=== PATIENT | female | born 1945 | race African-American/Black ===

== ENCOUNTER → 2016-06-04 | Outpatient (CLI) | payer MEDICARE ==
[~2016-06-04] MED LIST: ALBU1AER INH; ASPI81TA82 PO; CENTTAB9 PO; CETI10CH PO; CHOL4POW3 PO; DILTCD300 PO; ESTER C PO; ESTR1TAB PO; LISI-360 PO; LOVA1TAB47 PO; METF-324 PO; MONT10TA2 PO; NOVO7030P2 SQ; PROBCAP4 PO
[2016-06-04 10:20] LABS: MEAN CELL VOLUME 90.3 FL (80.0-100.0); MEAN CORPUSCULAR HEMOGLOBIN 29.7 PG (27.0-34.0); MEAN CORPUSCULAR HGB CONC 32.9 % (32.0-36.0); PLATELET COUNT 190 TH/MM3 (150-450); RED BLOOD COUNT 3.99 MIL/MM3 (4.00-5.30); RED CELL DISTRIBUTION WIDTH 12.9 % (11.6-17.2); REVIEW FLAG FINAL
[2016-06-04 10:24] LABS: ALT (GPT) 42 U/L (10-53); ANION GAP 9 MEQ/L (5-15); AST (GOT) 27 U/L (15-37); BICARBONATE 26.6 MEQ/L (21.0-32.0); BLOOD UREA NITROGEN 19 MG/DL (7-18); CHLORIDE 104 MEQ/L (98-107); GLOMERULAR FILTRATION RATE 56 ML/MIN (>89); GLUCOSE,FASTING 140 MG/DL (74-99); POTASSIUM 3.9 MEQ/L (3.5-5.1); SODIUM (NA) 140 MEQ/L (136-145)
[2016-06-04 10:34] LABS: ALKALINE PHOSPHATASE 47 U/L (45-117); HDL CHOLESTEROL 89.5 MG/DL (40.0-60.0); LDL CHOLESTEROL 93 MG/DL (0-99); TOTAL BILIRUBIN ADULT 0.3 MG/DL (0.2-1.0)
[2016-06-04 12:27] LABS: HEMOGLOBIN A1b 2.4 %; HEMOGLOBIN Ao 81.9 %; HEMOGLOBIN LA1C 2.3 %; HEMOGLOBIN P3 4.3 %
== END ==
LOC: CLAB 09:43
DX: I10 Essential (primary) hypertension (principal); E11.65 Type 2 diabetes mellitus with hyperglycemia; E11.39 Type 2 diabetes mellitus with other diabetic ophthalmic complication; E78.5 Hyperlipidemia, unspecified; J45.20 Mild intermittent asthma, uncomplicated; Z91.09 Other allergy status, other than to drugs and biological substances; D64.9 Anemia, unspecified
CPT/HCPCS: 36415; 80053; 80061; 83036; 84443; 85027

== ENCOUNTER → 2016-11-13 | Outpatient (CLI) | payer MEDICARE ==
[2016-11-13 09:31] LABS: HEMATOCRIT 35.1 % (35.0-46.0); MEAN CELL VOLUME 91.5 FL (80.0-100.0); MEAN CORPUSCULAR HEMOGLOBIN 30.3 PG (27.0-34.0); MEAN CORPUSCULAR HGB CONC 33.2 % (32.0-36.0); PLATELET COUNT 171 TH/MM3 (150-450); RED BLOOD COUNT 3.84 MIL/MM3 (4.00-5.30); RED CELL DISTRIBUTION WIDTH 12.9 % (11.6-17.2); REVIEW FLAG FINAL; WHITE BLOOD COUNT 5.1 TH/MM3 (4.0-11.0)
[2016-11-13 11:15] LABS: ANION GAP 8 MEQ/L (5-15)
[2016-11-13 11:16] LABS: ALKALINE PHOSPHATASE 52 U/L (45-117); ALT (GPT) 47 U/L (10-53); AST (GOT) 30 U/L (15-37); BICARBONATE 20.6 MEQ/L (21.0-32.0); BLOOD UREA NITROGEN 22 MG/DL (7-18); CHLORIDE 94 MEQ/L (98-107); GLOMERULAR FILTRATION RATE 49 ML/MIN (>89); GLUCOSE,FASTING 127 MG/DL (74-99); HDL CHOLESTEROL 71.8 MG/DL (40.0-60.0); LDL CHOLESTEROL 79 MG/DL (0-99); POTASSIUM 3.6 MEQ/L (3.5-5.1); TOTAL BILIRUBIN ADULT 0.3 MG/DL (0.2-1.0)
[2016-11-13 11:21] LABS: SODIUM (NA) 123 MEQ/L (136-145)
[2016-11-13 16:35] LABS: HEMOGLOBIN A1a 1.2 %; HEMOGLOBIN A1b 2.5 %; HEMOGLOBIN Ao 81.1 %; HEMOGLOBIN LA1C 2.2 %; HEMOGLOBIN P3 4.4 %
== END ==
LOC: CLAB 08:38
DX: E78.5 Hyperlipidemia, unspecified (principal); I10 Essential (primary) hypertension; E11.39 Type 2 diabetes mellitus with other diabetic ophthalmic complication; D64.9 Anemia, unspecified; E11.65 Type 2 diabetes mellitus with hyperglycemia; J45.20 Mild intermittent asthma, uncomplicated; E04.2 Nontoxic multinodular goiter; G47.62 Sleep related leg cramps; Z91.09 Other allergy status, other than to drugs and biological substances; Z68.30 Body mass index [BMI] 30.0-30.9, adult
CPT/HCPCS: 36415; 80053; 80061; 83036; 84439; 84443; 85027

== ENCOUNTER → 2016-12-11 | Outpatient (CLI) | payer MEDICARE ==
[2016-12-11 09:30] LABS: BICARBONATE 23.4 MEQ/L (21.0-32.0); POTASSIUM 4.5 MEQ/L (3.5-5.1)
== END ==
LOC: CLAB 08:39
PROVIDERS: ATTEND Family Medicine
DX: R89.9 Unspecified abnormal finding in specimens from other organs, systems and tissues (principal)
CPT/HCPCS: 36415; 80048

== ENCOUNTER → 2017-02-19 | Outpatient (CLI) | payer MEDICARE ==
[2017-02-19 09:48] LABS: ANION GAP 8 MEQ/L (5-15); AST (GOT) 26 U/L (15-37); BICARBONATE 24.3 MEQ/L (21.0-32.0); BLOOD UREA NITROGEN 18 MG/DL (7-18); CHLORIDE 105 MEQ/L (98-107); GLOMERULAR FILTRATION RATE 57 ML/MIN (>89); GLUCOSE,FASTING 153 MG/DL (74-99); POTASSIUM 4.5 MEQ/L (3.5-5.1); SODIUM (NA) 137 MEQ/L (136-145)
[2017-02-19 09:50] LABS: HEMATOCRIT 34.8 % (35.0-46.0); MEAN CORPUSCULAR HEMOGLOBIN 30.5 PG (27.0-34.0); MEAN CORPUSCULAR HGB CONC 33.1 % (32.0-36.0); PLATELET COUNT 174 TH/MM3 (150-450); RED BLOOD COUNT 3.78 MIL/MM3 (4.00-5.30); REVIEW FLAG FINAL; WHITE BLOOD COUNT 4.3 TH/MM3 (4.0-11.0)
[2017-02-19 10:02] LABS: ALKALINE PHOSPHATASE 45 U/L (45-117); ALT (GPT) 29 U/L (10-53); HDL CHOLESTEROL 84.9 MG/DL (40.0-60.0); LDL CHOLESTEROL 76 MG/DL (0-99); TOTAL BILIRUBIN ADULT 0.2 MG/DL (0.2-1.0)
[2017-02-19 12:39] LABS: HEMOGLOBIN A1a 1.4 %; HEMOGLOBIN A1b 2.4 %; HEMOGLOBIN Ao 81.2 %; HEMOGLOBIN LA1C 2.6 %; HEMOGLOBIN P3 4.5 %
== END ==
LOC: CLAB 08:43
DX: I10 Essential (primary) hypertension (principal); E11.65 Type 2 diabetes mellitus with hyperglycemia; E78.5 Hyperlipidemia, unspecified; E11.39 Type 2 diabetes mellitus with other diabetic ophthalmic complication; J45.20 Mild intermittent asthma, uncomplicated; D64.9 Anemia, unspecified; G47.62 Sleep related leg cramps; Z68.30 Body mass index [BMI] 30.0-30.9, adult; Z91.09 Other allergy status, other than to drugs and biological substances
CPT/HCPCS: 36415; 80053; 80061; 83036; 84443; 85027

== ENCOUNTER → 2017-06-28 | Outpatient (CLI) | payer MEDICARE ==
[2017-06-28 09:43] LABS: HEMATOCRIT 36.8 % (35.0-46.0); HEMOGLOBIN 12.2 GM/DL (11.6-15.3); MEAN CELL VOLUME 90.7 FL (80.0-100.0); MEAN CORPUSCULAR HEMOGLOBIN 29.9 PG (27.0-34.0); MEAN PLATELET VOLUME 8.1 FL (7.0-11.0); PLATELET COUNT 183 TH/MM3 (150-450); RED BLOOD COUNT 4.06 MIL/MM3 (4.00-5.30); RED CELL DISTRIBUTION WIDTH 13.4 % (11.6-17.2); WHITE BLOOD COUNT 4.1 TH/MM3 (4.0-11.0)
[2017-06-28 10:11] LABS: ALBUMIN 3.4 GM/DL (3.4-5.0); ALT (GPT) 24 U/L (10-53); AST (GOT) 19 U/L (15-37); BICARBONATE 26.3 MEQ/L (21.0-32.0); BLOOD UREA NITROGEN 12 MG/DL (7-18); CALCIUM 8.6 MG/DL (8.5-10.1); CHLORIDE 108 MEQ/L (98-107); CHOLESTEROL 174 MG/DL (120-200); CREATININE 0.96 MG/DL (0.50-1.00); GLOMERULAR FILTRATION RATE 69 ML/MIN (>89); GLUCOSE,FASTING 147 MG/DL (74-99); SODIUM (NA) 144 MEQ/L (136-145); TRIGLYCERIDES 104 MG/DL (42-150)
[2017-06-28 10:21] LABS: ALKALINE PHOSPHATASE 46 U/L (45-117); CHOLESTEROL/ HDL RATIO 2.16 RATIO; HDL CHOLESTEROL 80.3 MG/DL (40.0-60.0); LDL CHOLESTEROL 73 MG/DL (0-99); TOTAL BILIRUBIN ADULT 0.3 MG/DL (0.2-1.0); TOTAL PROTEIN 7.4 GM/DL (6.4-8.2)
[2017-06-28 15:43] LABS: HEMOGLOBIN A1C 8.6 % (4.3-6.0)
== END ==
LOC: CLAB 08:46
PROVIDERS: ATTEND Family Medicine
DX: M54.5 Low back pain (principal); I10 Essential (primary) hypertension; E11.39 Type 2 diabetes mellitus with other diabetic ophthalmic complication; J45.20 Mild intermittent asthma, uncomplicated; D64.9 Anemia, unspecified; G47.62 Sleep related leg cramps; R89.9 Unspecified abnormal finding in specimens from other organs, systems and tissues; Z91.09 Other allergy status, other than to drugs and biological substances; Z68.29 Body mass index [BMI] 29.0-29.9, adult
CPT/HCPCS: 36415; 80053; 80061; 83036; 84443; 85027